=== PATIENT | male | born 2000 | race Two or more races ===

== ENCOUNTER 2019-12-23 10:33 | Emergency (ER) | payer OTHER ==
[~2019-12-23] VITALS: Ht 180.3 cm; Wt 86.0 kg
[2019-12-23] MEDS ORDERED: ACETAMINOPHEN 325 MG TABLET PO ONE (11:15)
[2019-12-23] MEDS ORDERED: BACITRACIN 0.9 GM PACKET OINTMENT TP ONE (11:15)
[2019-12-23] MEDS ORDERED: POVIDONE-IODINE 10% 15 ML SOLUTION UD TP ONE (11:15)
[2019-12-23] MEDS ORDERED: LIDOCAINE 1% 10 ML VIAL INJ ONE ×2 (11:15→14:45)
[2019-12-23 14:09] VITALS: BP 150/83
== END 2019-12-23 15:54 | disposition home or self-care (01) ==
LOC: EMS 10:36
DX: S66.325A Laceration of extensor muscle, fascia and tendon of left ring finger at wrist and hand level, initial encounter (principal); S61.412A Laceration without foreign body of left hand, initial encounter; W26.8XXA Contact with other sharp object(s), not elsewhere classified, initial encounter; Y93.89 Activity, other specified; Y92.69 Other specified industrial and construction area as the place of occurrence of the external cause; Y99.0 Civilian activity done for income or pay
CPT/HCPCS: 12044; 73130; 99284; J3490